=== PATIENT | male | born 1970 | race Caucasian/White ===

== ENCOUNTER 2017-11-19 10:49 | Emergency (ER) | payer OTHER ==
[2017-11-19 10:56] VITALS: BP 104/74; PULSE 74; RESP 18; TEMP 97
[2017-11-19] MEDS ORDERED: PROPARACAINE 0.5% OPHTH DROPS 15 ML BTL LEFT EYE STA (11:18)
--- NOTE | 2017-11-19 11:39 | ED ---
Eye Problem HPI - General Chief complaint: Eye Problems Stated complaint: eye injury Time Seen by Provider: 11/19/17 11:05 Source: patient Mode of arrival: ambulatory Limitations: no limitations - History of Present Illness Initial comments: 47 years old male was working in the yard yesterday he had branch applying poker over the left eye, it happened on Monday he said he had a several his cornea scratches in the past he was wearing safety goggles it happened over the top of the safety glasses. He stated his last tetanus was 6 years ago planing about some pain and he stated his vision is fine and was initially blurred my review of system is unremarkable otherwise - Related Data Home Medications Medication Instructions Recorded Confirmed Dextroamphetamine/Amphetamine 30 mg PO BID 03/18/15 05/09/16 [Adderall] Previous Rx's Medication Instructions Recorded HYDROcodone/APAP 7.5-325MG [[place] 1 - 2 each PO Q4H PRN #15 tab 03/18/15 7.5-325] Ibuprofen [Motrin] 600 mg PO Q6HR PRN #20 tab 03/18/15 Hydrocodone/Acetaminophen [[place] 1 each PO Q4HR PRN #15 tab 04/02/15 5-325] Ibuprofen [Motrin] 600 mg PO Q6HR PRN #20 tab 04/02/15 HYDROcodone/APAP 5-325MG [[place] 1 tab PO Q6HR PRN #20 tab 05/09/16 5-325] Naproxen [Naprosyn] 500 mg PO Q12HR #60 tab 05/09/16 Cyclopentolate 1% Ophth Soln 1 drops LEFT EYE Q8H #1 ml 11/19/17 [Cyclogyl 1% Ophth Soln] Erythromycin Ophth Oint [Romycin 1 applic LEFT EYE QID #1 gm 11/19/17 Ophth Oint] Allergies Allergy/AdvReac Type Severity Reaction Status Date / Time No Known Allergies Allergy Verified 11/19/17 10:56 Review of Systems ROS Statement: Those systems with pertinent positive or pertinent negative responses have been documented in the HPI. ROS Other: All systems not noted in ROS Statement are negative. Past Medical History Additional Past Medical History / Comment(s): back pain History of Any Multi-Drug Resistant Organisms: None Reported Past Surgical History: No Surgical Hx Reported Past Psychological History: ADD/ADHD Smoking Status: Current every day smoker Past Alcohol Use History: Occasional Past Drug Use History: Marijuana General Exam - General Exam Comments Initial Comments: General: The patient is awake and alert, in no distress, and does not appear acutely ill. Skin: Skin is warm and dry Eye: Pupils are equal, round and reactive to light, fluorescein dye was used to examine the cornea after using proparacaine, noticed a abrasion on the cornea to 2 small abrasions parallel To each other Ears, nose, mouth and throat: There are moist mucous membranes and no oral lesions. Neck: The neck is supple, there is no tenderness or JVD. Cardiovascular: There is a regular rate and rhythm. No murmur, rub or gallop is appreciated. Respiratory: To auscultation bilateral, no wheezing no rhonchi no distress respiratory sams noticed Gastrointestinal: Soft, non-distended, non-tender abdomen without masses or organomegaly noted. There is no rebound or guarding present. Bowel sounds are unremarkable. Back: There is no tenderness to palpation in the midline. There is no obvious deformity. Musculoskeletal: Normal ROM, no tenderness, There is no pedal edema. There is no calf tenderness or swelling. No cords were appreciated. Neurological: CN II-XII intact, Cranial nerves III through XII are intact. There are no obvious motor or sensory deficits. Coordination appears grossly intact. Speech is normal. Psychiatric: Cooperative, appropriate mood & affect, normal judgment. Limitations: no limitations Course Vital Signs 11/19/17 10:53 Temperature 97.0 F L Pulse Rate 74 Respiratory 18 Rate Blood Pressure 104/74 O2 Sat by Pulse 97 Oximetry Disposition Clinical Impression: Corneal abrasion Disposition: HOME SELF-CARE Condition: Good Instructions: Corneal Abrasion (ED) Prescriptions: Cyclopentolate 1% Ophth Soln [Cyclogyl 1% Ophth Soln] 1 drops LEFT EYE Q8H #1 ml Erythromycin Ophth Oint [Romycin Ophth Oint] 1 applic LEFT EYE QID #1 gm Is patient prescribed a controlled substance at d/c from ED?: No If prescribed controlled substance>3 days was MAPS reviewed?: No When asked, does pt state using other controlled substances?: No Referrals: Rob Cavazos MD [Primary Care Provider] - 1-2 days Kendra Rosales MD [STAFF PHYSICIAN] - 1-2 days
== END 2017-11-19 12:08 | disposition home or self-care (01) ==
LOC: EC 10:49
DX: S05.02XA Injury of conjunctiva and corneal abrasion without foreign body, left eye, initial encounter (principal); F90.9 Attention-deficit hyperactivity disorder, unspecified type; F17.200 Nicotine dependence, unspecified, uncomplicated; Z79.899 Other long term (current) drug therapy; W22.8XXA Striking against or struck by other objects, initial encounter; Y93.89 Activity, other specified; Y92.096 Garden or yard of other non-institutional residence as the place of occurrence of the external cause
CPT/HCPCS: 99283